=== PATIENT | female | born 1965 | race American Indian/Alaskan Native ===

== ENCOUNTER 2021-02-12 17:27 | Emergency (ER) | payer BC, OTHER ==
[2021-02-12 17:48] VITALS: BP 139/87
--- NOTE | 2021-02-13 00:03 | Emergency Department Report ---
ED Lower Extremity HPI - General Chief Complaint: Extremity Injury, Lower Stated Complaint: Lower leg pain Time Seen by Provider: 02/12/21 23:42 Source: patient Mode of arrival: Ambulatory Limitations: No Limitations - History of Present Illness Initial Comments: Chief complaint: I hurt my knee. HPI: This is a 56-year-old female with history of hypertension who presents with left knee injury. While walking down steps, she felt a pop. She has severe pain at the posterior medial region. Brace helps with stability. 7 out of 10 pain. Worse with walking. Worse with palpation. Injury this afternoon. Complaint: knee injury -: Sudden, This afternoon Injury: Knee: Left Place: home Severity: moderate Severity scale (0 -10): 7 Improves With: other (Knee brace) Worsens With: weight bearing, movement, palpation Context: other (Walking down steps) Associated Symptoms: snap/pop sensation, able to partially bear weight - Related Data Home Medications Medication Instructions Recorded Confirmed Last Taken lisinopriL [Zestril TAB] 40 mg PO QDAY 02/04/14 02/04/14 Unknown Previous Rx's Medication Instructions Recorded Last Taken Type Azithromycin [Zithromax Z-BARRY] 250 mg PO DAILY #1 pkg 02/04/14 Unknown Rx Fluticasone Propionate [Flonase] 2 sprays NS QDAY #1 bottle 02/04/14 Unknown Rx Promethazine /Codeine 5 ml PO Q6H PRN #150 ml 02/04/14 Unknown Rx [Phenergan/Codeine 6.25-10 mg/5 ml] predniSONE [Deltasone] 50 mg PO QDAY #5 tab 02/04/14 Unknown Rx Acetaminophen/Codeine 1 tab PO Q6H PRN #15 tab 02/28/14 Unknown Rx [Acetaminophen-Codeine #3 TAB] Ibuprofen [Motrin 800 MG tab] 800 mg PO Q8H PRN #21 tablet 02/28/14 Unknown Rx HYDROcodone/APAP 5-325 [[place] 1 each PO Q6HR PRN #10 tablet 02/13/21 Unknown Rx 5/325] Ibuprofen [Motrin 400 MG tab] 1 tab PO TID 5 Days #15 tablet 02/13/21 Unknown Rx Allergies Allergy/AdvReac Type Severity Reaction Status Date / Time No Known Allergies Allergy Verified 02/04/14 07:40 ED Review of Systems ROS: Stated complaint: Lower leg pain Other details as noted in HPI Constitutional: denies: chills, fever, malaise Respiratory: denies: cough, shortness of breath Cardiovascular: denies: chest pain Neurological: denies: numbness, paresthesias ED Past Medical Hx - Past Medical History Previous Medical History?: Yes Hx Hypertension: Yes - Surgical History Past Surgical History?: Yes Additional Surgical History: hysterectomy. Left carpal tunnel. Left breast cyst removal - Social History Smoking Status: Never Smoker Substance Use Type: Alcohol - Medications Home Medications: Home Medications Medication Instructions Recorded Confirmed Last Taken Type Azithromycin [Zithromax Z-BARRY] 250 mg PO DAILY #1 pkg 02/04/14 Unknown Rx Fluticasone Propionate [Flonase] 2 sprays NS QDAY #1 bottle 02/04/14 Unknown Rx Promethazine /Codeine 5 ml PO Q6H PRN #150 ml 02/04/14 Unknown Rx [Phenergan/Codeine 6.25-10 mg/5 ml] lisinopriL [Zestril TAB] 40 mg PO QDAY 02/04/14 02/04/14 Unknown History predniSONE [Deltasone] 50 mg PO QDAY #5 tab 02/04/14 Unknown Rx Acetaminophen/Codeine 1 tab PO Q6H PRN #15 tab 02/28/14 Unknown Rx [Acetaminophen-Codeine #3 TAB] Ibuprofen [Motrin 800 MG tab] 800 mg PO Q8H PRN #21 tablet 02/28/14 Unknown Rx HYDROcodone/APAP 5-325 [[place] 1 each PO Q6HR PRN #10 tablet 02/13/21 Unknown Rx 5/325] Ibuprofen [Motrin 400 MG tab] 1 tab PO TID 5 Days #15 tablet 02/13/21 Unknown Rx ED Physical Exam - General Limitations: No Limitations General appearance: alert, in no apparent distress - Head Head exam: Present: atraumatic, normocephalic - Respiratory Respiratory exam: Absent: respiratory distress - Expanded Lower Extremity Exam Left Hip exam: Present: normal inspection, full ROM Upper Leg exam: Present: normal inspection, full ROM Knee exam: Present: full ROM, tenderness. Absent: swelling, abrasion, laceration, ecchymosis, deformity, crepidus, dislocation, erythema, effusion Lower Leg exam: Present: normal inspection, full ROM Ankle exam: Present: normal inspection, full ROM Foot/Toe exam: Present: normal inspection, full ROM Neuro vascular tendon exam: Present: no vascular compromise - Neurological Exam Neurological exam: Present: alert, oriented X3 - Psychiatric Psychiatric exam: Present: normal affect, normal mood - Skin Skin exam: Present: warm, dry, intact, normal color ED Course Vital Signs 02/12/21 17:47 Temperature 98.8 F Pulse Rate 72 Respiratory 18 Rate Blood Pressure 139/87 O2 Sat by Pulse 99 Oximetry ED Lower Extremity MDM - Medical Decision Making Left knee pain with suspected ligament derangement: Left knee immobilizer placed under my supervision. After application, left lower extremity neurovascularly intact. Prescribed ibuprofen [place]. Referred to orthopedic surgeon. Critical care attestation.: If time is entered above; I have spent that time in minutes in the direct care of this critically ill patient, excluding procedure time. ED Disposition Clinical Impression: Left knee sprain Disposition: HOME / SELF CARE / HOMELESS Is pt being admited?: No Does the pt Need Aspirin: No Condition: Stable Instructions: Knee Sprain, Adult Prescriptions: Ibuprofen [Motrin 400 MG tab] 1 tab PO TID 5 Days #15 tablet HYDROcodone/APAP 5-325 [[place] 5/325] 1 each PO Q6HR PRN #10 tablet PRN Reason: Pain Referrals: HESHAM BARRY MD [Staff Physician] - 3-5 Days Forms: Work/School Release Form(ED)
== END 2021-02-13 01:30 | disposition home or self-care (01) ==
LOC: ED 17:27
DX: S83.8X2A Sprain of other specified parts of left knee, initial encounter (principal); I10 Essential (primary) hypertension; Z90.710 Acquired absence of both cervix and uterus; Z79.899 Other long term (current) drug therapy; X58.XXXA Exposure to other specified factors, initial encounter; Y93.89 Activity, other specified; Y92.89 Other specified places as the place of occurrence of the external cause; Y99.8 Other external cause status
CPT/HCPCS: 99282